=== PATIENT | female | born 1945 | race Caucasian/White ===

== ENCOUNTER 2017-02-05 22:59 | Emergency (ER) | payer OTHER ==
[~2017-02-05] VITALS: Ht 154.9 cm; Wt 69.0 kg
[2017-02-05 23:12] VITALS: BP 144/89; PULSE 70; RESP 18; TEMP 97.9; O2SAT 99
[2017-02-05] MEDS ORDERED: MONT10TA2 PO (23:25)
[2017-02-05] MEDS ORDERED: ATOR20TA15 PO (23:25)
[2017-02-05] MEDS ORDERED: PROP40TA3 PO (23:25)
[2017-02-05] MEDS ORDERED: OMEP20TA PO (23:25)
[2017-02-05 23:26] VITALS: RESP 18; O2SAT 99
--- NOTE | 2017-02-05 23:31 | PD ---
HPI Chief Complaint: Anxiety Time Seen by Provider: 23:23 Travel History International Travel<30 days: No Contact w/Intl Traveler<30days: No Traveled to known affect area: No History of Present Illness HPI 71-year-old female presents to the emergency department by EMS transport from home for evaluation of shortness of breath anxiety and tingling in her hands and feet after receiving bad news regarding her [id number] who is located in [place] and apparently her managing physicians are expecting her to soon. The patient states that she found out this news around 3 PM today and has been feeling upset since that time. Patient states while shopping this evening with her for warm clothing and jackets around 9:30 she started feeling short of breath and anxious and developing tingling in her hands and feet. Patient returned home her symptoms have not improved and so called 911 to be transported to the emergency department. According to EMS report upon their arrival patient appeared to be hyperventilating and room air O2 saturation's 97 % but was placed on 2 L/m nasal cannula supplemental oxygen with saturations increasing to 100% and patient's symptoms resolving en route to the hospital. Patient presently is on room air and reports that all of her symptoms have resolved. Patient states that this past week they've known that the sister-in- law has been ill but receive this abrupt change in her health status today and since then has been very upset but she became overwhelmed around 9:30 PM this evening. Patient states that she does take medication for COPD and has been taking her medications as prescribed. Patient is also on medication for management of seasonal allergies and rhinosinusitis and has been taking this medication as well. Patient's had no change in her medications. Patient states her plan is to leave by plane tomorrow to go to [place] to see her ill [id number] along with her . PFSH Past Medical History Narrative Medical COPD dyslipidemia breast cancer right mastectomy reconstructive surgery cervical spine surgery no tobacco use nursing notes reviewed Cancer: Yes High Cholesterol: Yes COPD: Yes Diminished Hearing: No Respiratory: Yes Immunizations Current: Yes Tetanus Vaccination: < 5 Years Influenza Vaccination: Yes ?: Not Menopausal: Yes Social History Alcohol Use: Yes Tobacco Use: No Substance Use: No Allergies-Medications (Allergen,Severity, Reaction): Coded Allergies: Aspirin (Verified Allergy, Severe, Shortness of Breath, 02/05/17) Sulfa (Verified Allergy, Severe, Rash, 02/05/17) Reported Meds & Prescriptions Reported Meds & Active Scripts Active Reported Propranolol (Propranolol HCl) 40 Mg Tab 40 Mg PO Q12HR Singulair (Montelukast Sodium) 10 Mg Tab 10 Mg PO HS Atorvastatin (Atorvastatin Calcium) 20 Mg Tab 20 Mg PO HS Omeprazole 20 Mg Tab 20 Mg PO DAILY Review of Systems Except as stated in HPI: all other systems reviewed are Neg General / Constitutional: No: Fever, Chills HENT: No: Congestion Cardiovascular: No: Chest Pain or Discomfort Respiratory: Positive: Shortness of Breath Gastrointestinal: No: Vomiting, Abdominal Pain Genitourinary: No: Flank Pain Musculoskeletal: No: Myalgias, Arthralgias, Cramping, Edema Skin: No Rash Neurologic: No: Weakness, Dizziness Psychiatric: Positive: Anxiety Hematologic/Lymphatic: No: Lymph Node Enlargement Physical Exam Narrative GENERAL: Well-developed well-nourished female in no acute distress no respiratory distress room air O2 saturation 97% SKIN: Warm and dry. HEAD: Atraumatic. Normocephalic. EYES: Pupils equal and round. No scleral icterus. No injection or drainage. ENT: No nasal bleeding or discharge. Mucous membranes pink and moist. NECK: Trachea midline. No JVD. CARDIOVASCULAR: Regular rate and rhythm. RESPIRATORY: No accessory muscle use. Clear to auscultation. Breath sounds equal bilaterally. GASTROINTESTINAL: Abdomen soft, non-tender, nondistended. Hepatic and splenic margins not palpable. MUSCULOSKELETAL: Extremities without clubbing, cyanosis, or edema. No obvious deformities. NEUROLOGICAL: Awake and alert. No obvious cranial nerve deficits. Motor grossly within normal limits. Five out of 5 muscle strength in the arms and legs. Normal speech. PSYCHIATRIC: Appropriate mood and affect; insight and judgment normal. Data Data Last Documented VS Vital Signs Date Time Temp Pulse Resp B/P Pulse Ox O2 Delivery O2 Flow Rate FiO2 02/06/17 00:43 73 18 132/79 99 Room Air 02/05/17 23:12 97.9 Orders Complete Blood Count With Diff (02/05/17 23:22) Basic Metabolic Panel (Bmp) (02/05/17 23:22) B-Type Natriuretic Peptide (02/05/17 23:22) Magnesium (Mg) (02/05/17 23:22) Troponin I (02/05/17 23:22) Iv Access Insert/Monitor (02/05/17 23:22) Electrocardiogram (02/05/17 23:22) Ecg Monitoring (02/05/17 23:22) Oximetry (02/05/17 23:22) Chest, Single Ap (02/05/17 23:22) Ondansetron Inj (Zofran Inj) (02/05/17 23:45) Labs Laboratory Tests Test 02/05/17 23:45 White Blood Count 13.3 TH/MM3 Red Blood Count 4.80 MIL/MM3 Hemoglobin 13.3 GM/DL Hematocrit 40.8 % Mean Corpuscular Volume 85.1 FL Mean Corpuscular Hemoglobin 27.7 PG Mean Corpuscular Hemoglobin 32.6 % Concent Red Cell Distribution Width 13.0 % Platelet Count 252 TH/MM3 Mean Platelet Volume 8.6 FL Neutrophils (%) (Auto) 80.1 % Lymphocytes (%) (Auto) 14.1 % Monocytes (%) (Auto) 4.3 % Eosinophils (%) (Auto) 0.3 % Basophils (%) (Auto) 1.2 % Neutrophils # (Auto) 10.6 TH/MM3 Lymphocytes # (Auto) 1.9 TH/MM3 Monocytes # (Auto) 0.6 TH/MM3 Eosinophils # (Auto) 0.0 TH/MM3 Basophils # (Auto) 0.2 TH/MM3 CBC Comment DIFF FINAL Differential Comment Sodium Level 140 MEQ/L Potassium Level 3.9 MEQ/L Chloride Level 104 MEQ/L Carbon Dioxide Level 27.0 MEQ/L Anion Gap 9 MEQ/L Blood Urea Nitrogen 22 MG/DL Creatinine 0.95 MG/DL Estimat Glomerular Filtration 58 ML/MIN Rate Random Glucose 117 MG/DL Calcium Level 9.3 MG/DL Magnesium Level 2.1 MG/DL Troponin I LESS THAN 0.02 NG/ML B-Type Natriuretic Peptide 39 PG/ML MDM Medical Decision Making Medical Screen Exam Complete: Yes Emergency Medical Condition: Yes Medical Record Reviewed: Yes Interpretation(s) EKG: Normal sinus rhythm rate 75, no acute ST elevation or injury pattern change noted, nonspecific T-wave inversion septally in V1 V2, artifact is present at baseline; no comparison studies Last Impressions Chest X-Ray 02/05/17 8216 Signed Impressions: Service Date/Time: January 23:38 - CONCLUSION: The lungs are clear. Efraín Navarro MD CBC & BMP Diagram 02/05/17 23:45 Vital Signs Date Time Temp Pulse Resp B/P Pulse Ox O2 Delivery O2 Flow Rate FiO2 02/06/17 00:43 73 18 132/79 99 Room Air 02/05/17 23:26 18 99 Room Air 02/05/17 23:18 70 18 02/05/17 23:12 97.9 70 18 144/89 99 troponin I: <0.02, not elevated bnp: 39, not elevated Differential Diagnosis Dyspnea, anxiety, exacerbation COPD, ACS, PE; unlikely pneumothorax or pneumonia Narrative Course At 23:30 PM at bedside and reports that he has canceled her plane flight patient becomes emotional again and begins crying; patient is consolable by spouse Patient with episode of nausea administered Zofran 4 mg IV Patient resting comfortably awaiting lab results EKG shows no acute ST elevation or injury pattern chest x-ray shows no lobar infiltrate effusion or pneumothorax Lab values found to be in normal range Patient with spouse at bedside and discussed lab results EKG and imaging study in detail discussed with patient observation admission for chest pain center protocol to evaluate for atypical chest pain/shortness of breath nausea episode of vomiting and paresthesias most likely reflects anxiety episode however patient's risk factor profile 71-year-old female with hypertension and dyslipidemia reasonable to admit to chest pain center for serial cardiac enzymes and EKGs. Patient was spouse at bedside states that she is asymptomatic declines observation admission and reports symptoms began related to emotionally stressful information regarding ill health a family member and does not want to be admitted at this time. Patient does report closely with primary care provider. Patient is encouraged to return to the emergency department for any concerns or change in condition Critical Care Narrative Aggregate critical care time was 40 minutes. Time to perform other separately billable procedures was not included in the critical care time. My time did not include minutes spent treating any other patients simultaneously or on activities that did not directly contribute to the patient's treatment. The services I provided to this patient were to treat and/or prevent clinically significant deterioration that could result in: Respiratory failure, arrhythmia , myocardial infarction, I provided critical care services requiring my management, as noted below: Chart data review, documentation time, medication orders and management, vital sign assessments/reviewing monitor data, ordering and reviewing lab tests, ordering and interpreting/reviewing x-rays and diagnostic studies, care of the patient and discussion of the patient with the admitting physicians. Diagnosis Primary Impression: Dyspnea Qualified Code: R06.02 - Shortness of breath Additional Impressions: Anxiety History of COPD Referrals: Primary Care Physician call for appointment Patient Instructions: General Instructions Additional Instructions: Increase fluid hydration Continue current medications as presently prescribed Follow-up with primary care provider Return to the emergency for for any concerns or change in condition Med/Other Pt SpecificInfo: No Change to Meds Disposition: 01 DISCHARGE HOME Condition: Stable Ania Lee MD Feb 05, 2017 23:31
[2017-02-05] MEDS ORDERED: ONDANSETRON HCL 4 MG/2 ML VIAL IV PUSH ONE (23:45)
--- NOTE | 2017-02-06 00:01 | RADHPO ---
EXAM DATE/TIME: 02/05/2017 23:38 [facility] COMPARISON: No previous studies available for comparison. INDICATIONS : Shortness of breath starting tonight MEDICAL HISTORY : Carcinoma, breast. SURGICAL HISTORY : Mastectomy, right. ENCOUNTER: Initial ACUITY: 1 day PAIN SCORE: 0/10 LOCATION: Bilateral chest FINDINGS: A single view of the chest demonstrates the lungs to be symmetrically aerated without evidence of mas s, infiltrate or effusion. No evidence of pneumothorax. The cardiomediastinal contours are unremark able. Osseous structures are intact. Anterior plate in the lower cervical region. Multiple hemocli ps in the right axilla. CONCLUSION: The lungs are clear. Efraín Navarro MD on February 05, 2017 at 23:56 Board Certified Radiologist. This report was verified electronically.
[2017-02-06 00:06] LABS: AUTOMATED NEUTROPHIL # 10.6 TH/MM3 (1.8-7.7); BASOPHIL # 0.2 TH/MM3 (0-0.2); BASOPHIL % 1.2 % (0.0-2.0); EOSINOPHIL % 0.3 % (0.0-4.0); HEMATOCRIT 40.8 % (35.0-46.0); LYMPH % 14.1 % (9.0-44.0); LYMPHOCYTE # 1.9 TH/MM3 (1.0-4.8); MEAN CELL VOLUME 85.1 FL (80.0-100.0); MEAN CORPUSCULAR HEMOGLOBIN 27.7 PG (27.0-34.0); MEAN CORPUSCULAR HGB CONC 32.6 % (32.0-36.0); MONO % 4.3 % (0.0-8.0); NEUT % 80.1 % (16.0-70.0); PLATELET COUNT 252 TH/MM3 (150-450); WHITE BLOOD COUNT 13.3 TH/MM3 (4.0-11.0)
[2017-02-06 00:14] LABS: HEMO FLAGS DIFF FINAL
[2017-02-06 00:16] LABS: CHLORIDE 104 MEQ/L (98-107); POTASSIUM 3.9 MEQ/L (3.5-5.1); SODIUM (NA) 140 MEQ/L (136-145)
[2017-02-06 00:19] LABS: ANION GAP 9 MEQ/L (5-15); BLOOD UREA NITROGEN 22 MG/DL (7-18); MAGNESIUM 2.1 MG/DL (1.5-2.5)
[2017-02-06 00:23] LABS: GLOMERULAR FILTRATION RATE 58 ML/MIN (>89)
[2017-02-06 00:43] VITALS: BP 132/79; PULSE 73; RESP 18; O2SAT 99
[2017-02-06 01:27] VITALS: BP 119/68
--- NOTE | 2017-02-06 19:33 | EKG ---
Date Performed: 02/05/2017 Time Performed: 23:31:18 PTAGE: 71 years EKG: Probable normal Sinus rhythm Low QRS voltages in precordial leads Abnormal ECG NO PREVIOUS TRACING DOCTOR: Ned Baker Interpretating Date/Time 02/06/2017 19:32:42
== END 2017-02-06 01:45 | disposition home or self-care (01) ==
LOC: PHED 22:59
DX: R06.00 Dyspnea, unspecified (principal); F41.9 Anxiety disorder, unspecified; R94.31 Abnormal electrocardiogram [ECG] [EKG]; E78.5 Hyperlipidemia, unspecified; I10 Essential (primary) hypertension; R20.2 Paresthesia of skin; Z87.09 Personal history of other diseases of the respiratory system; Z85.3 Personal history of malignant neoplasm of breast
CPT/HCPCS: 71010; 80048; 83735; 83880; 84484; 85025; 93005; 96374; 99291; J2405